=== PATIENT | female | born 1950 | race American Indian/Alaskan Native ===

== ENCOUNTER 2022-08-25 10:08 | Day surgery (SDC) | payer OTHER, BC ==
[2022-08-22 09:19] VITALS: BMI 27.8
[2022-08-25 10:52] VITALS: RESP 18; TEMP 97.7
[2022-08-25 13:41] VITALS: BP 114/56; PULSE 61
== END 2022-08-25 13:10 | disposition home or self-care (01) ==
LOC: FASU-ENDO 10:08
PROVIDERS: ATTEND Internal Medicine Gastroenterology
PROC: 0DJD8ZZ Inspection of Lower Intestinal Tract, Via Natural or Artificial Opening Endoscopic (ICD-10-PCS; principal; 2022-08-25 12:05)
DX: Z12.11 Encounter for screening for malignant neoplasm of colon (principal); Z80.0 Family history of malignant neoplasm of digestive organs; K57.30 Diverticulosis of large intestine without perforation or abscess without bleeding
CPT/HCPCS: 82962